=== PATIENT | female | born 1965 | race Caucasian/White ===

== ENCOUNTER 2019-05-22 15:30 | Emergency (ER) | payer OTHER, SELFPAY ==
[2019-05-22 15:37] VITALS: BP 112/71; PULSE 90; RESP 18; TEMP 37.2; O2SAT 99
--- NOTE | 2019-05-22 15:48 | ED.GENADULT ---
HPI - General Adult General Chief complaint: Urogenital-Female Stated complaint: yeast infection Time Seen by Provider: 05/22/19 15:48 Source: patient and RN notes reviewed Mode of arrival: ambulatory Limitations: no limitations History of Present Illness HPI narrative: This is a 54 years old female presents to the office for an evaluation of vaginal itchiness for one months. She completed two doses of Diflucan with no relief. She develops blister about 4days ago; complains of pain, irritate, and itchy. Denies abnormal discharge or foul odor. She is sexually active with one partner for many years. Denies history of STD or HPV. She has uncontrolled diabetes, hypertension, and hypothyroidism. She has tried [id number] cortisone cream and Vaseline with no relief. Related Data Home Medications Medication Instructions Recorded Confirmed amlodipine 2.5 mg PO DAILY 05/22/19 05/22/19 levothyroxine 200 mcg PO DAILY 05/22/19 05/22/19 lisinopril-hydrochlorothiazide 1 tablet PO DAILY 05/22/19 05/22/19 metformin 1,000 mg PO BID 05/22/19 05/22/19 Allergies Allergy/AdvReac Type Severity Reaction Status Date / Time No Known Drug Allergies Allergy Verified 02/01/12 10:34 Review of Systems Review of Systems: Narrative: CONSTITUTIONAL: Denies fever or feeling ill ENT: Denies congestion CARDIOVASCULAR: Denies chest pain RESPIRATORY: Denies dyspnea or cough GASTROINTESTINAL: Denies abdominal pain, nausea, vomiting, diarrhea. GENITOURINARY: Denies urinary symptoms or discharge SKIN: Reports vaginal blister lesions MUSCULOSKELETAL: Denies acute back pain NEUROLOGIC: Denies lightheaded PMFSH Past Medical History Medical History (Updated 05/22/19 @ 15:58 by PROMISE Zabala) Diabetes mellitus, type II HTN (hypertension) Hypothyroid Social History Social History (Updated 05/22/19 @ 15:57 by PROMISE Zabala) Smoking status: Never smoker Comments At time of signature, I agree with nursing past medical, surgical, social and family history. There is no relevant family history pertinent to the presenting complaint. Exam Narrative: Exam Narrative: GENERAL: This is a well-nourished, well-developed patient, in no apparent distress. CARDIOVASCULAR: Regular rate and rhythm without murmurs, gallops, or rubs. RESPIRATORY: Clear to auscultation. Breath sounds equal bilaterally. No wheezes, rales, or rhonchi. GASTROINTESTINAL: Abdomen soft, non-tender, nondistended. Bowel sounds are active. No guarding. 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 No lesions noted inside andrea. No cervicle tenderness. NO foul odor. SKIN: warm, intact with no suspicious lesions or rash, good texture and turgor. NEURO: awake, alert, and oriented to person, place and time. There were no obvious focal neurologic abnormalities. Steady gait [place] Coma Scale Eye Opening: Spontaneous 4 Kathy Coma Scale Motor: Obeys Commands 6 Kathy Coma Scale Verbal: Oriented 5 Course Vital Signs Vital signs: Vital Signs Temperature 99.0 F 05/22/19 15:37 Pulse Rate 90 05/22/19 15:37 Respiratory Rate 18 05/22/19 15:37 Blood Pressure 112/71 05/22/19 15:37 Pulse Oximetry 99 05/22/19 15:37 Temperature 99.0 F 05/22/19 15:37 Pulse Rate 90 05/22/19 15:37 Respiratory Rate 18 05/22/19 15:37 Blood Pressure 112/71 05/22/19 15:37 Pulse Oximetry 99 05/22/19 15:37 Medical Decision Making MDM Narrative Medical decision making narrative: Discharge instructions reviewed with patient, as well as provided in writing per nursing staff. The instructions also include specific and strict return/GO TO THE ER as well as f/u information. All questions have been answered, and the patient deny any further questions with discharge and discharge plan. Differential Diagnosis Differential Diagnosis: bacterial v
== END 2019-05-22 16:10 | disposition home or self-care (01) ==
PROVIDERS: Emergency Provider Nurse Practitioner; PCP Family Medicine
DX: N76.0 Acute vaginitis (principal); E11.9 Type 2 diabetes mellitus without complications; I10 Essential (primary) hypertension; E03.9 Hypothyroidism, unspecified
CPT/HCPCS: 87140; 87255; 87661; 99203; G0463